=== PATIENT | female | born 1980 | race Asian ===

== ENCOUNTER 2019-04-26 20:33 | Emergency (ER) | payer MEDICAID ==
[~2019-04-26] VITALS: Ht 154.9 cm; Wt 68.0 kg
[~2019-04-26 20:33] MED LIST: NO HOME MEDS
[2019-04-26 21:24] LABS: BASOPHILS # (AUTO) 0.1 X10'3 (0-0.2); BASOPHILS % (AUTO) 0.7 % (0-1); EOSINOPHILS # (AUTO) 0.3 X10'3 (0-0.9); EOSINOPHILS % (AUTO) 2.1 % (0-6); HEMATOCRIT 30.5 % (35.0-45.0); HEMOGLOBIN 9.6 g/dl (12.0-16.0); LYMPHOCYTES # (AUTO) 3.2 X10'3 (1.1-4.8); LYMPHOCYTES % (AUTO) 25.2 % (21-51); MEAN CORPUSCULAR HEMOGLOBIN 19.4 PG (27.0-31.0); MEAN CORPUSCULAR HGB CONC 31.4 g/dL (33.0-36.5); MEAN CORPUSCULAR VOLUME 61.6 FL (78-98); MEAN PLATELET VOLUME 7.1 FL (7.4-10.4); MONOCYTES # (AUTO) 1.2 X10'3 (0-0.9); NEUTROPHILS # (AUTO) 8.1 X10'3 (1.8-7.7); PLATELET COUNT 391 X10'3 (140-440); RED BLOOD COUNT 4.95 X10'6 (4.20-5.60); WHITE BLOOD COUNT 12.8 X10'3 (4.5-11.0)
[2019-04-26 21:31] LABS: ALANINE AMINOTRANSFERASE 35 U/L (12-78); ALBUMIN/GLOBULIN RATIO 0.8 (1.1-1.5); ALKALINE PHOSPHATASE 98 IU/L (46-116); ANION GAP 10 (8-16); ASPARTATE AMINO TRANSFERASE 30 U/L (10-37); BILIRUBIN,TOTAL 0.3 MG/DL (0.1-1.0); BLOOD UREA NITROGEN 13 MG/DL (7-18); BUN/CREATININE RATIO 14.9 (6.6-38.0); CALCIUM 8.7 MG/DL (8.5-10.1); CHLORIDE 104 MMOL/L (99-107); CREATININE 0.87 MG/DL (0.40-0.90); GLUCOSE 100 MG/DL (70-104); POTASSIUM 3.5 MMOL/L (3.5-5.1); SODIUM 140 MMOL/L (135-145); TOTAL CARBON DIOXIDE 26.5 MMOL/L (24-32); TOTAL PROTEIN 8.8 G/DL (6.4-8.2); eGFR 73 ML/MIN
[2019-04-26 21:49] LABS: PLATELET ESTIMATE NORMAL; POLYCHROMASIA FEW
[2019-04-26 21:50] LABS: ANISOCYTOSIS 2+
--- NOTE | 2019-04-26 23:00 | NUR ---
[facility] PA VERBALIZED THAT PATIENT CAN HAVE ICE WATER ,[facility] AT BEDSIDE ASSESSING PATIENT
[2019-04-26] MEDS ORDERED: LIDOcaine Viscous 15ml cup MM PRN (23:20)
[2019-04-26] MEDS ORDERED: mag hydrox/Alum hydrox/simeth 30ml oral suspension PO ONE (23:20)
[2019-04-26] MEDS ORDERED: ondansetron 4mg rapidly disintigrating tab PO ONE (23:20)
--- NOTE | 2019-04-26 23:48 | NUR ---
po challenge patient was able to swallow >240mL of h2o
[2019-04-26] MEDS ORDERED: pantoprazole 40mg Tablet.DR PO SCH (23:50)
[2019-04-26] MEDS ORDERED: pantoprazole 40mg Tablet.DR PO ONE (23:50)
[2019-04-27 00:30] VITALS: BP 110/84
[2019-04-27] MEDS ORDERED: pantoprazole 40mg Tablet.DR PO SCH (07:30)
== END 2019-04-27 00:55 | disposition home or self-care (01) ==
LOC: ER 20:33
DX: R07.89 Other chest pain (principal); M25.512 Pain in left shoulder; I10 Essential (primary) hypertension; K21.9 Gastro-esophageal reflux disease without esophagitis; Z86.2 Personal history of diseases of the blood and blood-forming organs and certain disorders involving the immune mechanism; Z85.3 Personal history of malignant neoplasm of breast; Z90.10 Acquired absence of unspecified breast and nipple; Z79.899 Other long term (current) drug therapy
CPT/HCPCS: 36415; 71045; 80053; 84484; 85025; 93005; 99285

== ENCOUNTER 2019-04-29 15:20 | Emergency (ER) | payer MEDICAID ==
[~2019-04-29] VITALS: Ht 154.9 cm; Wt 68.0 kg
[2019-04-29 16:00] LABS: BASOPHILS # (AUTO) 0.1 X10'3 (0-0.2); BASOPHILS % (AUTO) 0.7 % (0-1); EOSINOPHILS # (AUTO) 0.1 X10'3 (0-0.9); EOSINOPHILS % (AUTO) 1.2 % (0-6); HEMATOCRIT 30.5 % (35.0-45.0); HEMOGLOBIN 9.6 g/dl (12.0-16.0); LYMPHOCYTES # (AUTO) 1.7 X10'3 (1.1-4.8); LYMPHOCYTES % (AUTO) 16.3 % (21-51); MEAN CORPUSCULAR HEMOGLOBIN 19.9 PG (27.0-31.0); MEAN CORPUSCULAR HGB CONC 31.4 g/dL (33.0-36.5); MEAN CORPUSCULAR VOLUME 63.2 FL (78-98); MEAN PLATELET VOLUME 7.5 FL (7.4-10.4); MONOCYTES # (AUTO) 0.8 X10'3 (0-0.9); NEUTROPHILS # (AUTO) 7.8 X10'3 (1.8-7.7); NEUTROPHILS % (AUTO) 73.8 % (42-75); PLATELET COUNT 416 X10'3 (140-440); RED BLOOD COUNT 4.83 X10'6 (4.20-5.60); RED CELL DISTRIBUTION WIDTH 19.7 % (11.5-14.5); WHITE BLOOD COUNT 10.5 X10'3 (4.5-11.0)
[2019-04-29 16:11] LABS: ALANINE AMINOTRANSFERASE 172 U/L (12-78); ALBUMIN 4.1 G/DL (3.4-5.0); ALBUMIN/GLOBULIN RATIO 0.9 (1.1-1.5); ALKALINE PHOSPHATASE 123 IU/L (46-116); ANION GAP 9 (8-16); ASPARTATE AMINO TRANSFERASE 106 U/L (10-37); BILIRUBIN,TOTAL 0.7 MG/DL (0.1-1.0); BLOOD UREA NITROGEN 15 MG/DL (7-18); BUN/CREATININE RATIO 17.6 (6.6-38.0); CALCIUM 8.9 MG/DL (8.5-10.1); CHLORIDE 105 MMOL/L (99-107); CREATININE 0.85 MG/DL (0.40-0.90); GLUCOSE 104 MG/DL (70-104); LIPASE 98 U/L (73-393); POTASSIUM 3.6 MMOL/L (3.5-5.1); SODIUM 142 MMOL/L (135-145); TOTAL CARBON DIOXIDE 27.6 MMOL/L (24-32); TOTAL PROTEIN 8.8 G/DL (6.4-8.2); eGFR 75 ML/MIN
--- NOTE | 2019-04-29 16:11 | NUR ---
INDU FAGAN IN ROOM AT THIS TIME.
[2019-04-29 16:26] LABS: CLARITY,URINE CLOUDY (Clear); COLOR,URINE YELLOW (Yellow); GLUCOSE, URINE NEGATIVE (Neg); KETONES,URINE NEGATIVE (Neg); LEUKOCYTE ESTERASE ,URINE NEGATIVE (Neg); NITRITES, URINE NEGATIVE (Neg); OCCULT BLOOD,URINE NEGATIVE (Neg); PROTEIN,URINE NEGATIVE (Neg); URINE HCG NEGATIVE (NEG)
[2019-04-29 16:30] LABS: UA COLLECTION TYPE CLN CATCH MIDSTREAM
[2019-04-29 16:36] LABS: AMORPHOUS PHOSPHATES 3+; BACTERIA,URINE FEW /HPF (Neg); MUCUS STRANDS FEW /LPF (Neg); RBC,URINE NONE SEEN /HPF (0-2); SQUAMOUS EPITHELIAL CELL,UR MODERATE /LPF (FEW); WBC,URINE 0-4 /HPF (0-4)
[2019-04-29 16:48] LABS: PLATELET ESTIMATE NORMAL
[2019-04-29 16:49] LABS: ANISOCYTOSIS 2+; ELLIPTOCYTES 1+; HYPOCHROMASIA 2+; MICROCYTOSIS 2+; POLYCHROMASIA 1+; TEAR DROP CELLS FEW
[2019-04-29] MEDS ORDERED: SUCR1ORA12 PO (17:06)
[2019-04-29] MEDS ORDERED: ONDA8TAB6 PO (17:06)
[2019-04-29] MEDS ORDERED: ondansetron 4mg rapidly disintigrating tab PO ONE (17:10)
[2019-04-29 17:21] VITALS: BP 115/76
== END 2019-04-29 17:22 | disposition home or self-care (01) ==
LOC: ER 15:21
DX: R10.13 Epigastric pain (principal); R10.11 Right upper quadrant pain; R11.2 Nausea with vomiting, unspecified; R74.8 Abnormal levels of other serum enzymes; I10 Essential (primary) hypertension; K21.9 Gastro-esophageal reflux disease without esophagitis; Z98.890 Other specified postprocedural states; Z85.3 Personal history of malignant neoplasm of breast
CPT/HCPCS: 36415; 76700; 80053; 81001; 81025; 83690; 85025; 99284

== ENCOUNTER 2021-03-07 18:44 | Inpatient (IN) | payer MEDICAID ==
[~2021-03-07] VITALS: Ht 154.9 cm; Wt 68.2 kg
[~2021-03-07 18:44] MED LIST changes: +ONDA8TAB6 PO; +SUCR1ORA12 PO
[2021-03-07] MEDS ORDERED: normal saline 1000ML IV soln IV ONE (19:15)
[2021-03-07] MEDS ORDERED: acetaminophen 325mg tablet PO STA (19:15)
[2021-03-07 20:11] LABS: BASOPHILS % (AUTO) 0.3 % (0-1); EOSINOPHILS % (AUTO) 0.1 % (0-6); HEMATOCRIT 34.4 % (35.0-45.0); LYMPHOCYTES # (AUTO) 0.9 X10'3 (1.1-4.8); LYMPHOCYTES % (AUTO) 11.4 % (21-51); MEAN CORPUSCULAR HEMOGLOBIN 21.5 PG (27.0-31.0); MEAN CORPUSCULAR VOLUME 67.2 FL (78-98); MEAN PLATELET VOLUME 7.4 FL (7.4-10.4); MONOCYTES # (AUTO) 0.7 X10'3 (0-0.9); MONOCYTES % (AUTO) 9.1 % (2-12); NEUTROPHILS # (AUTO) 6.1 X10'3 (1.8-7.7); NEUTROPHILS % (AUTO) 79.1 % (42-75); PLATELET COUNT 285 X10'3 (140-440); RED BLOOD COUNT 5.12 X10'6 (4.20-5.60); RED CELL DISTRIBUTION WIDTH 16.5 % (11.5-14.5); WHITE BLOOD COUNT 7.7 X10'3 (4.5-11.0)
[2021-03-07 20:19] LABS: D-DIMER 0.98 MG/L FEU (0-0.50)
[2021-03-07 20:26] LABS: ALANINE AMINOTRANSFERASE 59 U/L (12-78); ALBUMIN 3.3 G/DL (3.4-5.0); ALBUMIN/GLOBULIN RATIO 0.6 (1.1-1.5); ALKALINE PHOSPHATASE 59 IU/L (46-116); ANION GAP 14 (8-16); ASPARTATE AMINO TRANSFERASE 56 U/L (10-37); BILIRUBIN,TOTAL 0.4 MG/DL (0.1-1.0); BLOOD UREA NITROGEN 9 MG/DL (7-18); CALCIUM 8.1 MG/DL (8.5-10.1); CHLORIDE 97 MMOL/L (99-107); CREATININE 0.82 MG/DL (0.40-0.90); GLUCOSE 97 MG/DL (70-104); MAGNESIUM 2.1 MG/DL (1.5-2.4); POTASSIUM 3.9 MMOL/L (3.5-5.1); SODIUM 135 MMOL/L (135-145); TOTAL CARBON DIOXIDE 24.2 MMOL/L (24-32); TOTAL PROTEIN 8.6 G/DL (6.4-8.2); eGFR 78 ML/MIN
[2021-03-07] MEDS ORDERED: iohexol 350MG/ML 100ml bottle IV ONE (20:33)
[2021-03-07 22:12] LABS: URINE HCG NEGATIVE (NEG)
[2021-03-07] MEDS ORDERED: CefTRIAXone/D5W-Rocephin 1gm 50 ML IV ONE (22:30)
[2021-03-07] MEDS ORDERED: azithromycin/NS 500mg/250ml 250 ML IV ONE (22:30)
[2021-03-07 23:15] LABS: ANISOCYTOSIS 1+; MICROCYTOSIS 2+; NUCLEATED RED BLOOD CELLS 1 /100WBC (0-0); PLATELET ESTIMATE NORMAL; TOTAL CELLS COUNTED 100
[2021-03-07 23:16] LABS: HYPOCHROMASIA 2+; POLYCHROMASIA FEW
[2021-03-07 23:17] LABS: ELLIPTOCYTES FEW; TEAR DROP CELLS FEW
[2021-03-08] MEDS ORDERED: magnesium 2GM in 50ml NS 50 ML IV PRN (00:25)
[2021-03-08] MEDS ORDERED: ondansetron/PF 4mg/2ml inj IV ONE (00:25)
[2021-03-08] MEDS ORDERED: magnesium Cl slow-release 64mg tablet PO PRN (00:25)
[2021-03-08] MEDS ORDERED: acetaminophen 325mg tablet PO PRN (00:25)
[2021-03-08] MEDS ORDERED: potassium Cl 20 mEq SR tablet PO PRN ×2 (00:25)
[2021-03-08] MEDS ORDERED: mag hydrox/Alum hydrox/simeth 30ml oral suspension PO PRN (00:25)
[2021-03-08] MEDS ORDERED: magnesium hydroxide 30ml (MOM) UD suspension PO PRN (00:25)
[2021-03-08] MEDS ORDERED: PERFLUTREN PROTEIN-A MICROSPHR (Optison) 0.22 MG/ML 3ML VIAL IV PRN (00:25)
[2021-03-08] MEDS ORDERED: potassium CL 10mEq/100ml bag 100 ML IV PRN (00:25)
[2021-03-08] MEDS ORDERED: ondansetron/PF 4mg/2ml inj IV PRN (00:25)
[2021-03-08] MEDS ORDERED: magnesium 4gm in 100ml NS 100 ML IV PRN (00:25)
[2021-03-08] MEDS: normal saline 1000ml 1,000 ML IV SCH ×3 (01:09→21:29)
[2021-03-08] MEDS: K and/or MAG REPLACEMENT MC SCH ×2 (08:00→20:00)
[2021-03-08] MEDS: dexamethasone inj 6 MG in normal saline 50ml IV soln 50 ML IV SCH ×2 (08:00→23:31)
[2021-03-08] MEDS: docusate sod 100mg capsule PO SCH ×2 (08:39→20:00)
[2021-03-08] MEDS: enoxaparin 40mg/0.4ml syringe SUBCUT SCH (08:40)
[2021-03-08 11:02] LABS: BASOPHILS % (AUTO) 0.3 % (0-1); EOSINOPHILS % (AUTO) 0.1 % (0-6); HEMATOCRIT 28.4 % (35.0-45.0); HEMOGLOBIN 9.2 g/dl (12.0-16.0); LYMPHOCYTES % (AUTO) 14.3 % (21-51); MEAN CORPUSCULAR HEMOGLOBIN 21.7 PG (27.0-31.0); MEAN CORPUSCULAR HGB CONC 32.3 g/dL (33.0-36.5); MEAN CORPUSCULAR VOLUME 67.2 FL (78-98); MONOCYTES # (AUTO) 0.6 X10'3 (0-0.9); MONOCYTES % (AUTO) 9.1 % (2-12); NEUTROPHILS # (AUTO) 5.3 X10'3 (1.8-7.7); NEUTROPHILS % (AUTO) 76.2 % (42-75); PLATELET COUNT 260 X10'3 (140-440); RED BLOOD COUNT 4.23 X10'6 (4.20-5.60); WHITE BLOOD COUNT 6.9 X10'3 (4.5-11.0)
[2021-03-08 11:12] LABS: D-DIMER 0.83 MG/L FEU (0-0.50)
[2021-03-08 11:18] LABS: ALANINE AMINOTRANSFERASE 36 U/L (12-78); ALBUMIN 2.5 G/DL (3.4-5.0); ALBUMIN/GLOBULIN RATIO 0.6 (1.1-1.5); ALKALINE PHOSPHATASE 43 IU/L (46-116); ANION GAP 13 (8-16); ASPARTATE AMINO TRANSFERASE 32 U/L (10-37); BILIRUBIN,TOTAL 0.3 MG/DL (0.1-1.0); BLOOD UREA NITROGEN 6 MG/DL (7-18); BUN/CREATININE RATIO 9.1 (6.6-38.0); CALCIUM 7.1 MG/DL (8.5-10.1); CHLORIDE 106 MMOL/L (99-107); CREATININE 0.66 MG/DL (0.40-0.90); GLUCOSE 103 MG/DL (70-104); POTASSIUM 3.3 MMOL/L (3.5-5.1); SODIUM 141 MMOL/L (135-145); TOTAL CARBON DIOXIDE 22.4 MMOL/L (24-32); TOTAL PROTEIN 6.7 G/DL (6.4-8.2); eGFR > 90 ML/MIN
[2021-03-08 11:30] LABS: FERRITIN 40 NG/ML (8-252); LACTATE DEHYDROGENASE 235 U/L (81-234); MAGNESIUM 2.1 MG/DL (1.5-2.4)
[2021-03-08 11:31] LABS: C-REACTIVE PROTEIN 6.75 MG/DL (0.0-0.5)
[2021-03-08 12:05] LABS: TOTAL CELLS COUNTED 100
[2021-03-08 12:07] LABS: ANISOCYTOSIS 1+; HYPOCHROMASIA 1+; MICROCYTOSIS 2+; PLATELET ESTIMATE NORMAL; POLYCHROMASIA FEW
[2021-03-08 12:08] LABS: ELLIPTOCYTES FEW; TEAR DROP CELLS FEW
[2021-03-08 17:50] LABS: URINE AMPHETAMINE SCREEN NEGATIVE (Neg); URINE BARBITUATE SCREEN NEGATIVE (Neg); URINE BENZODIAZEPINES SCREEN NEGATIVE (Neg); URINE CANNABINOID SCREEN NEGATIVE (Neg); URINE COCAINE SCREEN NEGATIVE (Neg); URINE METHADONE SCREEN NEGATIVE (Neg); URINE OPIATE SCREEN NEGATIVE (Neg); URINE PHENCYCLIDINE SCREEN NEGATIVE (Neg)
[2021-03-08 20:00] VITALS: BP 108/69
[2021-03-08] MEDS ORDERED: CefTRIAXone 2gm/D5W 50ml BAG 50 ML IV SCH (23:00)
[2021-03-09 02:00] VITALS: BP 107/58
--- NOTE | 2021-03-09 05:00 | NUR ---
Stable throughout the shift. O2 sats 95% or greater on room air. No spontaneous cough, however her lungs are congested and she has coughing spells when encouraged to deep breathe
[2021-03-09 06:00] VITALS: BP 110/69
--- NOTE | 2021-03-09 06:05 | NUR ---
received report from freda alcantara
--- NOTE | 2021-03-09 06:24 | NUR ---
Change of shift report given to Belg[place] BEEBE Addendum: 03/09/21 at 0624 by Dana Garcia RN Amended: Links added.
[2021-03-09] MEDS: enoxaparin 40mg/0.4ml syringe SUBCUT SCH (07:35)
[2021-03-09] MEDS: dexamethasone inj 6 MG in normal saline 50ml IV soln 50 ML IV SCH (07:35)
[2021-03-09] MEDS: docusate sod 100mg capsule PO SCH (07:37)
[2021-03-09] MEDS: normal saline 1000ml 1,000 ML IV SCH (07:40)
[2021-03-09 08:00] LABS: BASOPHILS % (AUTO) 0.4 % (0-1); EOSINOPHILS % (AUTO) 0 % (0-6); LYMPHOCYTES # (AUTO) 0.9 X10'3 (1.1-4.8); LYMPHOCYTES % (AUTO) 12.9 % (21-51); MEAN CORPUSCULAR HEMOGLOBIN 21.7 PG (27.0-31.0); MEAN CORPUSCULAR HGB CONC 32.2 g/dL (33.0-36.5); MEAN CORPUSCULAR VOLUME 67.5 FL (78-98); MEAN PLATELET VOLUME 7.4 FL (7.4-10.4); MONOCYTES # (AUTO) 0.4 X10'3 (0-0.9); MONOCYTES % (AUTO) 5.5 % (2-12); NEUTROPHILS # (AUTO) 5.4 X10'3 (1.8-7.7); NEUTROPHILS % (AUTO) 81.2 % (42-75); PLATELET COUNT 312 X10'3 (140-440); RED CELL DISTRIBUTION WIDTH 16.8 % (11.5-14.5); WHITE BLOOD COUNT 6.7 X10'3 (4.5-11.0)
[2021-03-09] MEDS: K and/or MAG REPLACEMENT MC SCH (08:00)
[2021-03-09 09:13] LABS: ALANINE AMINOTRANSFERASE 35 U/L (12-78); ALBUMIN 2.6 G/DL (3.4-5.0); ALBUMIN/GLOBULIN RATIO 0.5 (1.1-1.5); ALKALINE PHOSPHATASE 52 IU/L (46-116); ANION GAP 15 (8-16); ASPARTATE AMINO TRANSFERASE 30 U/L (10-37); BILIRUBIN,TOTAL 0.2 MG/DL (0.1-1.0); BLOOD UREA NITROGEN 5 MG/DL (7-18); BUN/CREATININE RATIO 8.2 (6.6-38.0); C-REACTIVE PROTEIN 5.08 MG/DL (0.0-0.5); CHLORIDE 107 MMOL/L (99-107); CREATININE 0.61 MG/DL (0.40-0.90); GLUCOSE 128 MG/DL (70-104); LACTATE DEHYDROGENASE 256 U/L (81-234); POTASSIUM 3.9 MMOL/L (3.5-5.1); SODIUM 142 MMOL/L (135-145); TOTAL CARBON DIOXIDE 20.1 MMOL/L (24-32); TOTAL PROTEIN 7.5 G/DL (6.4-8.2); eGFR > 90 ML/MIN
[2021-03-09 09:39] LABS: D-DIMER 0.75 MG/L FEU (0-0.50)
[2021-03-09 10:00] VITALS: BP 89/49
[2021-03-09] MEDS ORDERED: ALBU8HFA PO (10:12)
[2021-03-09] MEDS ORDERED: PRED10TA PO (10:12)
[2021-03-09] MEDS ORDERED: AMOX-422 PO (10:12)
[2021-03-09 10:51] LABS: NUCLEATED RED BLOOD CELLS 2 /100WBC (0-0); TOTAL CELLS COUNTED 100
[2021-03-09 10:52] LABS: ANISOCYTOSIS 1+; ELLIPTOCYTES 1+; HYPOCHROMASIA 1+; MICROCYTOSIS 2+; PLATELET ESTIMATE NORMAL; POLYCHROMASIA FEW; SCHISTOCYTES FEW; SPHEROCYTES FEW; TEAR DROP CELLS FEW
--- NOTE | 2021-03-09 11:13 | NUR ---
PT D/C WITH INSTRUCTIONS, UNDERSTANDING OF INSTRUCTIONS, AND W/ALL BELONGINGS, INCLUDING AN IS AND FLUTTER VALVE PER MD ORDERS, IN WHEELCHAIR ACCOMPANIED BY NURSING STAFF TO PRIVATE VEHICLE TO GO HOME AND F/U W/PCP
== END 2021-03-09 11:00 | disposition home or self-care (01) | DRG 137 ==
LOC: ER 18:45 → ED HOLD 03-08 00:28 → ORTHO 4S 03-08 19:28
PROVIDERS: ADMIT Internal Medicine; ATTEND Family Medicine
PROC: B32T1ZZ Computerized Tomography (CT Scan) of Left Pulmonary Artery using Low Osmolar Contrast (ICD-10-PCS; principal; 2021-03-07)
PROC: B3201ZZ Computerized Tomography (CT Scan) of Thoracic Aorta using Low Osmolar Contrast (ICD-10-PCS; 2021-03-07)
PROC: B32S1ZZ Computerized Tomography (CT Scan) of Right Pulmonary Artery using Low Osmolar Contrast (ICD-10-PCS; 2021-03-07)
DX: U07.1 COVID-19 (principal); J12.82 Pneumonia due to coronavirus disease 2019; I10 Essential (primary) hypertension; K21.9 Gastro-esophageal reflux disease without esophagitis; R63.0 Anorexia; Z85.3 Personal history of malignant neoplasm of breast; Z90.13 Acquired absence of bilateral breasts and nipples; Z92.21 Personal history of antineoplastic chemotherapy; Z68.28 Body mass index [BMI] 28.0-28.9, adult; E87.6 Hypokalemia
CPT/HCPCS: 36415; 71045; 71275; 80053; 80305; 81025; 82728; 83615; 83735; 84145; 85007; 85025; 85379; 86140; 87040; 87081; 93005; 93308; 99285; G0378; J0456; J0696; J1100; J1650; J2405; J3490; J7030; Q9967

== ENCOUNTER 2021-03-23 19:04 | Emergency (ER) | payer MEDICAID ==
[~2021-03-23] VITALS: Ht 154.9 cm; Wt 71.8 kg
[~2021-03-23 19:04] MED LIST changes: +ALBU8HFA PO; -NO HOME MEDS; -ONDA8TAB6 PO; +PRED10TA PO; -SUCR1ORA12 PO
[2021-03-23 20:33] LABS: BASOPHILS # (AUTO) 0.1 X10'3 (0-0.2); BASOPHILS % (AUTO) 0.6 % (0-1); EOSINOPHILS # (AUTO) 0.1 X10'3 (0-0.9); EOSINOPHILS % (AUTO) 0.6 % (0-6); HEMATOCRIT 34.2 % (35.0-45.0); HEMOGLOBIN 10.8 g/dl (12.0-16.0); LYMPHOCYTES # (AUTO) 1.8 X10'3 (1.1-4.8); LYMPHOCYTES % (AUTO) 13.9 % (21-51); MEAN CORPUSCULAR HGB CONC 31.6 g/dL (33.0-36.5); MEAN CORPUSCULAR VOLUME 69.4 FL (78-98); MEAN PLATELET VOLUME 7.5 FL (7.4-10.4); MONOCYTES # (AUTO) 1.1 X10'3 (0-0.9); MONOCYTES % (AUTO) 8.1 % (2-12); NEUTROPHILS % (AUTO) 76.8 % (42-75); PLATELET COUNT 391 X10'3 (140-440); RED BLOOD COUNT 4.92 X10'6 (4.20-5.60); RED CELL DISTRIBUTION WIDTH 18.6 % (11.5-14.5)
[2021-03-23 20:45] LABS: ALANINE AMINOTRANSFERASE 69 U/L (12-78); ALBUMIN 3.2 G/DL (3.4-5.0); ALBUMIN/GLOBULIN RATIO 0.7 (1.1-1.5); ALKALINE PHOSPHATASE 88 IU/L (46-116); ANION GAP 10 (8-16); ASPARTATE AMINO TRANSFERASE 48 U/L (10-37); BILIRUBIN,TOTAL 0.4 MG/DL (0.1-1.0); BLOOD UREA NITROGEN 8 MG/DL (7-18); BUN/CREATININE RATIO 10.5 (6.6-38.0); CALCIUM 8.7 MG/DL (8.5-10.1); CHLORIDE 103 MMOL/L (99-107); CREATININE 0.76 MG/DL (0.40-0.90); GLUCOSE 138 MG/DL (70-104); POTASSIUM 4.1 MMOL/L (3.5-5.1); SODIUM 136 MMOL/L (135-145); TOTAL CARBON DIOXIDE 23.5 MMOL/L (24-32); TOTAL PROTEIN 7.7 G/DL (6.4-8.2); eGFR 84 ML/MIN
[2021-03-23 22:26] LABS: PLATELET ESTIMATE NORMAL; POLYCHROMASIA FEW
[2021-03-23 22:27] LABS: ANISOCYTOSIS 2+; ELLIPTOCYTES FEW; MICROCYTOSIS 2+
[2021-03-23 23:10] VITALS: BP 104/72
[2021-03-24 01:39] LABS: D-DIMER 0.25 MG/L FEU (0-0.50)
== END 2021-03-24 02:33 | disposition home or self-care (01) ==
LOC: ER 19:05
DX: R06.02 Shortness of breath (principal); I10 Essential (primary) hypertension; K21.9 Gastro-esophageal reflux disease without esophagitis; Z85.3 Personal history of malignant neoplasm of breast; Z90.89 Acquired absence of other organs; Z79.899 Other long term (current) drug therapy
CPT/HCPCS: 36415; 71045; 80053; 83880; 84484; 85008; 85025; 85379; 93005; 99285

== ENCOUNTER 2025-02-25 09:24 | Emergency (ER) | payer OTHER, BC ==
[~2025-02-25] VITALS: Ht 154.9 cm; Wt 73.4 kg
[~2025-02-25 09:24] MED LIST changes: -ALBU8HFA PO
[2025-02-25 09:39] VITALS: BP 125/82; PULSE 93; RESP 18; O2SAT 97
--- NOTE | 2025-02-25 11:21 | Physician Documentation ---
History of Present Illness ~ Chief Complaint: Allergic Reaction Stated Complaint: ALLERGIC REACTION/MOUTH/TONGUE SWELLING Time Seen by MD: 11:05 Primary Medical Doctor: Latricia Roque Oncology Source: patient Mode of Arrival: POV HPI 44 y/o F with PMH breast cancer, Hep B, GERD, presenting to the ED with 1 day of tongue swelling and hives on her back, sides, and groin. She has no known allergies or new exposures including changes in soaps or detergents. She took a Benadryl last night and Zyrtec this morning without relief of symptoms. Denies SOB, cough, fever, difficulty swallowing, changes in urine. She endorses chest pain from GERD/ulcers, she ate a hot pepper 2 days ago and endorses loose stools and 6-7 BM's at that time but no other symptoms. Medication Reconciliation Allergies: Coded Allergies: No Known Allergies (Unverified , 03/07/21) Scheduled Prednisone (Prednisone), 0 PO DAILY Past Medical History Past Medical History: Hypertension, GERD, Anemia, Breast Cancer Past Surgical History: other Other Past Surgical History: Mastectomy Patient History: Patient reports no known family medical history. Smoking Status: Light Tobacco User Alcohol Use: None Drug Use: none Lives with: Spouse Lives In: Home Review of Systems All Other Systems at this time: Reviewed and Negative Physical Exam Vital Signs: Temperature: 97.8, Heart Rate: 93, Respiratory Rate: 18, BP: 125/82, Pulse Oximetry: 97, Weight: 73.400 Oxygen Flow Rate: 0 Physical Exam General: Awake and Alert, no acute distress. HEENT: Conjunctiva pink, Sclera clear, Mucus Membranes moist. Neck: Supple without masses and tenderness. Resp: Unlabored. Lungs clear to auscultation bilaterally. Heart: Regular Rate and rhythm, normal S1 and S2 without murmur, rub or gallop. Abdomen: Soft and non tender no organomegaly Extremities: No cyanosis,clubbing or edema. Skin: Warm and Dry. Urticaria present on mid and low back, left and right flanks. Progress Results/Orders Results/Orders Completed Orders - ANENLISE COLLAZO MD Dexamethasone Inj (Decadron 10mg/Ml Inj) (02/25/25 11:46) Famotidine Tablet (Pepcid Tablet) (02/25/25 11:50) Medications Received in ER Medications (Trade) Dose Ordered Sig/Eric Route PRN Reason Start Time Stop Time Status Last Admin Dose Admin (Decadron 10mg/ ml inj) 10 mg ONCE STAT IM 02/25/25 11:46 02/25/25 11:47 DC 02/25/25 12:02 10 MG (Pepcid tablet) 20 mg ONCE ONCE PO 02/25/25 11:50 02/25/25 11:51 DC 02/25/25 12:02 20 MG Vital Signs 02/25/25 09:39 Temp 97.8 Pulse 93 Resp 18 B/P (MAP) 125/82 Pulse Ox 97 O2 Flow Rate 0 Medical Decision Making Differential Dx:Considerations: Include: Anaphylaxis, Contact dermatitis, Drug reaction, Urticaria Departure Disposition: 01 HOME / SELF CARE / HOMELESS Impression: Primary Impression: Acute allergic reaction Discharge Instructions: Hives, [id number] Referrals: NO PRIMARY CARE PROVIDER (PCP) Prescriptions Famotidine (Pepcid) 20 Mg Tablet 1 TAB PO Q12H for 30 Days, #60 TAB 0 Refills Prov: ANNELISE COLLAZO MD 02/25/25 ANNELISE COLLAZO MD Feb 25, 2025 11:21
[2025-02-25] MEDS: dexamethasone sod phosphate 10mg/ml inj IM STA (12:02)
[2025-02-25] MEDS ORDERED: FAMO-128 PO (14:35)
[2025-02-25 14:39] VITALS: TEMP 97.8
== END 2025-02-25 14:40 | disposition home or self-care (01) ==
LOC: ER 09:25
DX: T78.49XA Other allergy, initial encounter (principal); L50.9 Urticaria, unspecified; K21.9 Gastro-esophageal reflux disease without esophagitis; D64.9 Anemia, unspecified; I10 Essential (primary) hypertension; Z85.3 Personal history of malignant neoplasm of breast; Z90.10 Acquired absence of unspecified breast and nipple; Z79.899 Other long term (current) drug therapy; X58.XXXA Exposure to other specified factors, initial encounter
CPT/HCPCS: 96372; 99283; J1100

== ENCOUNTER 2025-03-05 11:59 | Emergency (ER) | payer BC, OTHER ==
[~2025-03-05] VITALS: Ht 154.9 cm; Wt 73.7 kg
[~2025-03-05 11:59] MED LIST changes: +FAMO-128 PO
[2025-03-05 12:01] VITALS: TEMP 97.9
--- NOTE | 2025-03-05 12:10 | ELECTROCARDIOGRAPH REPORT ---
[facility] Test Date: 2025-03-05 Test Time: 12:08:18 Pat Name: JULY WESTPORT Department: [facility] Patient ID: [id number] Room: Gender: F Gum Mixer: : 1980 Requested By: AN GARCIA Order Number: [id number] Reading MD: Dr. Issac Scott Measurements Intervals [place] Rate: 83 P: 34 RI: 134 QRS: -10 QRSD: 98 T: 19 QT: 396 QTc: 466 Interpretive Statements Sinus rhythm Low voltage, precordial leads Electronically Signed On 03-06-2025 21:13:[address] Issac Scott Please click the below link to view image of tracing.
[2025-03-05 12:21] LABS: MEAN PLATELET VOLUME 8.0 FL (7.4-10.4); RED CELL DISTRIBUTION WIDTH 13.6 % (11.5-14.5)
--- NOTE | 2025-03-05 12:25 | RADIOLOGY REPORT ---
CHEST RADIOGRAPH INDICATION: CP TECHNIQUE: Single frontal view of the chest was obtained COMPARISON: CHEST,SINGLE VIEW on DOS: 03/23/21, CHEST,SINGLE VIEW on DOS: 03/07/21 FINDINGS: Lines and Tubes: None Lungs: Clear Pleura: No effusion. No pneumothorax. Cardiomediastinal contours: Unremarkable Bones: Unremarkable IMPRESSION: No acute disease.
[2025-03-05 12:43] LABS: CREATININE 0.87 MG/DL (0.40-0.90); TOTAL CARBON DIOXIDE 27.3 MMOL/L (24-32); eCRCL 63 ML/MIN; eGFR 71 ML/MIN
[2025-03-05 13:05] LABS: PRO BRAIN NATRIURETIC PEPTIDE < 30 PG/ML (0-125)
--- NOTE | 2025-03-05 13:28 | Physician Documentation ---
History of Present Illness ~ Chief Complaint: Palpitations Stated Complaint: RAPID HEART RATE/LEG SWELLING Time Seen by MD: 12:58 Primary Medical Doctor: Latricia Roque Oncology [facility] The patient presents to the ED with a complaint of a racing heart for several hours today. States she did not have a complaint shortness of breath or chest pain did feel somewhat faint. Did not have a syncopal episode and did not have any falls. Does have a history of anxiety that has gone untreated. Denies any history of cardiac problems Day of Onset: Mar 05, 2025 Medication Reconciliation Allergies: Coded Allergies: No Known Allergies (Unverified , 03/05/25) Scheduled Famotidine (Pepcid), 1 TAB PO Q12H Prednisone (Prednisone), 0 PO DAILY Past Medical History Past Medical History: Hypertension, GERD, Anemia, Breast Cancer Past Surgical History: other Other Past Surgical History: Mastectomy Patient History: Patient reports no known family medical history. Alcohol Use: None Drug Use: none Lives with: Spouse Lives In: Home Review of Systems All Other Systems at this time: Reviewed and Negative ROS As stated above in the HPI, otherwise all systems are reviewed and negative. Physical Exam Vital Signs: Temperature: 97.9, Source: Temporal, Heart Rate: 77, Respiratory Rate: 16, BP: 102/79, Pulse Oximetry: 97, Weight: 73.700 Oxygen Flow Rate: 0 Physical Exam General: Alert, no apparent distress. HEENT: PERRL, EOMI, no injection, moist mucous membranes. Neck: Full range of motion. Respiratory: Lungs clear, no respiratory distress. Chest: No accessory muscle use. Cardiovascular: Regular rate and rhythm, no murmurs. Gastrointestinal: Soft, nontender, nondistended. Bowels sounds present. Extremities: Normal range of motion, no deformity. Neurologic: Oriented x4. Psychiatric: Normal mood and affect. Skin: Normal color, warm and dry. No edema, no ecchymosis. Progress Results/Orders Results/Orders Vital Signs 03/05/25 03/05/25 12:01 12:25 Temp 97.9 Pulse 90 77 Resp 16 16 B/P (MAP) 134/76 102/79 (87) Pulse Ox 98 97 O2 Flow Rate 0 0 Laboratory Tests Test 03/05/25 12:14 White Blood Count 9.9 Red Blood Count 4.94 Hemoglobin 13.6 Hematocrit 40.1 Mean Corpuscular Volume 81.1 Mean Corpuscular Hemoglobin 27.4 Mean Corpuscular Hemoglobin Concent 33.8 Red Cell Distribution Width 13.6 Platelet Count 289 Mean Platelet Volume 8.0 Neutrophils (%) (Auto) 66.4 Lymphocytes (%) (Auto) 24.4 Monocytes (%) (Auto) 6.0 Eosinophils (%) (Auto) 2.5 Basophils (%) (Auto) 0.7 Neutrophils # (Auto) 6.6 Lymphocytes # (Auto) 2.4 Monocytes # (Auto) 0.6 Eosinophils # (Auto) 0.2 Basophils # (Auto) 0.1 CBC Comment Sodium Level 141 Potassium Level 3.7 Chloride Level 106 Carbon Dioxide Level 27.3 Anion Gap 8 Blood Urea Nitrogen 12 Creatinine 0.87 Estimated GFR/1.73 m2 71 BUN/Creatinine Ratio 13.8 Glucose Level 152 H Calcium Level 9.0 Troponin I High Sensitivity 20 Pro-B-Type Natriuretic Peptide < 30 Albumin 3.7 Chemistry Comments Medical Decision Making Additional information obtaine: old records Findings The patient reports improved symptoms while she laid in the [facility]. I discussed with her that she does not have any outstanding laboratory values or any other findings per my interpretation in her chest x-ray or EKG. More suspicious an anxiety or panic attack. Discussed this with the patient and she agreed to try hydroxyzine to help with the anxiety Differential Dx:Considerations: Include: angina / DE, atrial dysrhythmia, atrial fibrillation, atrial flutter, MAT, PACs, PSVT, sinus tachycardia, WPW, 1st degree AV block, 2nd degree AVB-type 1, 2nd degree AVB-type 2, 3rd degree AV block, PVCs, torsades de pointes, ventricular fibrillation, ventricular tachycardia, other Differential Dx:Considerations: Include anxiety/panic attack, Include digoxin toxicity, Include electrolyte disorder, Include heart failure, Include hyperthyroidism, Include hyperventilation, Include hypoxia, Include pacemaker malfunction, Include pulmonary embolus, Include renal failure, Include other Departure Disposition: 01 HOME / SELF CARE / HOMELESS Impression: Primary Impression: Anxiety Condition: Improved Discharge Instructions: Panic Attack, [id number] Referrals: NO PRIMARY CARE PROVIDER (PCP) Prescriptions Hydroxyzine Hcl* (Atarax*) 25 Mg Tablet 1 TAB PO Q12H for anxiety for 30 Days, #60 TAB Prov: TAM YOUNG NP 03/05/25 Education Educated: Patient Signature Scribe Signature: t Attestation: Scribed for Tam Young Rodent Control Worker by Tam Young - ADAM . 03/05/25 13:30 TAM YOUNG NP Mar 05, 2025 13:28
[2025-03-05] MEDS ORDERED: HYDR-3686 PO (13:30)
[2025-03-05 13:36] VITALS: BP 106/74; PULSE 70; RESP 15; O2SAT 97
== END 2025-03-05 13:52 | disposition home or self-care (01) ==
LOC: ER 12:00
DX: F41.9 Anxiety disorder, unspecified (principal); I10 Essential (primary) hypertension; K21.9 Gastro-esophageal reflux disease without esophagitis; D64.9 Anemia, unspecified; Z85.3 Personal history of malignant neoplasm of breast; Z90.10 Acquired absence of unspecified breast and nipple; Z79.899 Other long term (current) drug therapy
CPT/HCPCS: 36415; 71045; 80048; 83880; 84484; 85025; 93005; 99285